=== PATIENT | male | born 1995 | race Caucasian/White ===

== ENCOUNTER 2022-08-11 08:02 | Emergency (ER) | payer OTHER, SELFPAY ==
[2022-08-11 08:10] VITALS: BP 152/69; PULSE 92; RESP 18; TEMP 36.5; O2SAT 97
--- NOTE | 2022-08-11 08:15 | ED.EAR ---
HPI - Ear Problem General Chief complaint: Ear Stated complaint: Ear clogged/pain Time Seen by Provider: 08/11/22 08:20 Source: patient Mode of arrival: ambulatory Limitations: no limitations History of Present Illness HPI Narrative: 27-year-old male presented for complaint of right ear pain since last night. States he cannot hear. Also endorses mild pain behind right eye for 2 days, this has slowly been improving. He endorses for the last 10 days he has had cough, nasal congestion and drainage. Endorses his son is hospitalized for RSV. He has been taking DayQuil for symptoms. Denies dizziness, tinnitus, shortness of breath, wheezing, fevers or chills. MD Complaint: ear pain Related Data Allergies Allergy/AdvReac Type Severity Reaction Status Date / Time No Known Allergies Allergy Verified 08/11/22 08:17 Review of Systems Review of Systems: CONSTITUTIONAL: Denies malaise, chills, or fever. EYES: Denies visual changes, redness, or discharge ENT: Reports ear pain, rhinorrhea, congestion, sinus pain CARDIOVASCULAR: Denies chest pain, palpitations, or edema. RESPIRATORY: Denies dyspnea. GASTROINTESTINAL: Denies abdominal pain, nausea, vomiting, diarrhea SKIN: Denies rash or itching. MUSCULOSKELETAL: Denies myalgia. All systems reviewed & are unremarkable except as noted in HPI and below PMFSH Comments At time of signature, agree with nursing past medical, surgical, social and family history. There is no relevant family history pertinent to the presenting complaint Exam Narrative: GENERAL: Well-appearing EYES: PERRLA, conjunctivae clear ENT: Nares clear. Mucous membranes moist. Left TM pearly mata with normal light reflex; Right TM erythematous, bulging and tender, canal is swollen and red; no tragal tenderness. Oropharynx not erythematous without lesions. CHEST: Clear to auscultation, breath sounds equal. HEART: Regular rate and rhythm. No murmur heard. SKIN: Warm, dry, no rash. NEURO: Alert and oriented x3. PSYCH: Normal mood and affect Course Course Emergency Course: Patient is aware of diagnosis, understands and agrees to treatment plan. Anticipatory guidance given. Patient agrees to follow-up as directed and is aware of reasons to seek care at the emergency department. Portions of this record may have been created with voice recognition software Level of Care: Express Care Visit Vital Signs Vital signs: Vital Signs Temperature 97.7 F 08/11/22 08:10 Pulse Rate 92 08/11/22 08:10 Respiratory Rate 18 08/11/22 08:10 Blood Pressure 152/69 H 08/11/22 08:10 Pulse Oximetry 97 08/11/22 08:10 Oxygen Delivery Room Air 08/11/22 08:10 Temperature 97.7 F 08/11/22 08:10 Pulse Rate 92 08/11/22 08:10 Respiratory Rate 18 08/11/22 08:10 Blood Pressure 152/69 H 08/11/22 08:10 Pulse Oximetry 97 08/11/22 08:10 Oxygen Delivery Room Air 08/11/22 08:10 Reviewed Medical Decision Making MDM Narrative Medical decision making narrative: Patient is advised of exam findings. He states he cannot take amoxicillin or augmentin due to the fact that his is allergic to amoxicillin. He states she will get hives if she touches him. Advised the first line is Augmentin and he declines, requesting second-line abx. Advised supportive measures and signs/symptoms to go to the ER. Patient is appropriate for outpatient treatment and follow-up. Differential Diagnosis Differential Diagnosis: Coronavirus, strep pharyngitis, allergic rhinitis, upper respiratory tract infection, sinusitis, rhinosinusitis, nasopharyngitis, viral pharyngitis, otitis media, otitis externa, eustachian tube dysfunction, foreign body, cerumen impaction. Vital Signs Vital Signs: Vital Signs Temperature 97.7 F 08/11/22 08:10 Pulse Rate 92 08/11/22 08:10 Respiratory Rate 18 08/11/22 08:10 Blood Pressure 152/69 H 08/11/22 08:10 Pulse Oximetry 97 08/11/22 08:10 Oxygen Delivery Room Air 08/11/22 08:10
== END 2022-08-11 08:29 | disposition home or self-care (01) ==
PROVIDERS: Emergency Provider Nurse Practitioner Family
DX: H66.91 Otitis media, unspecified, right ear (principal)
CPT/HCPCS: 99213; G0463